=== PATIENT | male | born 1960 | race Caucasian/White ===

== ENCOUNTER 2023-10-20 21:31 | Emergency (ER) | payer OTHER, SELFPAY ==
[2023-10-20 21:34] VITALS: BP 160/90
[2023-10-20 21:56] LABS: % Basophils 0.7 % (0-2); % Eosinophils 0.9 % (0-6); % Immature Granulocytes 0.3 % (0-0.5); % Lymphocytes 21.9 % (20.5-51.1); % Monocytes 3.4 % (1.7-9.3); % Neutrophils 72.8 % (42.2-75.2); Absolute Eosinophils 0.1 10^3/uL (0-0.7); Absolute Lymphocytes 1.3 10^3/uL (1.2-3.4); Absolute Monocytes 0.2 10^3/uL (0.1-0.6); Absolute Neutrophils 4.3 10^3/uL (1.4-6.5); Hematocrit 38.2 % (39.0-52.0); Hemoglobin 13.3 g/dL (13.0-18.0); Mean Corp Hgb Conc. 34.8 g/dL (33.0-37.0); Mean Corpuscular Hgb 31.6 pg (27.0-31.0); Mean Corpuscular Volume 90.7 fL (80.0-94.0); Nucleated Red Blood Cells % 0 % (-); Platelet Count 172 10^3/uL (130-400); Red Blood Cell Count 4.21 10^6/uL (4.70-6.10); White Blood Cell Count 5.9 10^3/uL (4.8-10.8)
[2023-10-20 22:12] LABS: ALT (SGPT) 39 U/L (0-50); AST (SGOT) 35 U/L (17-59); Albumin 4.1 g/dl (3.5-5.0); Alkaline Phosphatase 79 U/L (38-126); Blood Urea Nitrogen 11 mg/dl (9-20); Carbon Dioxide 26 mmol/L (22-30); Chloride 99 mmol/L (98-107); Glucose 268 mg/dl (70-99); Potassium 4.6 mmol/L (3.5-5.1); Sodium 132 mmol/L (135-145); Total Bilirubin 0.7 mg/dl (0.2-1.3); Total Protein 6.3 g/dl (6.3-8.2); eGFR > 60.00
[2023-10-21] VITALS: BP 152/84
--- NOTE | 2023-10-21 00:13 | ED.GENMED ---
History of Present Illness
<Tracey Soria MD, Resident - Last Filed: 10/21/23 02:02>
General
Chief Complaint: Fainting Sensation
Source: patient
Time Seen by Provider: 10/21/23 00:13
History of Present Illness
History of Present Illness:
The patient is a 63 year old male who presented to ER today after he had a fainting sensation this afternoon at around 8.00 pm. He reported that he was ate his dinner and was drinking his beer ( without alcohol) in a bar when he started to feel
sweating and fainting. He reported he suddenly had the feeling of passing out and his told it to his . By patient`s report, his BP was found low at that time and his ECG was found normal. He was brought to ER by ambulance. He denies hitting
his head/falling, chest pain, SOB, palpitations at that time. Denies drinking alcohol and reports he stopped drinking alcohol since June 2023.
PMH: HT (for a few las year- not taking any medication), Depression ( on Cymbalta), fluvoxamine (Bladder problems)
PSH:None
If applicable-neuro sx onset
Date of onset of symptoms: 10/21/23
Review of Systems
<Tracey Soria MD, Resident - Last Filed: 10/21/23 02:02>
Review of Systems
Respiratory: Reports no symptoms
Cardiac: Reports no symptoms
: Reports no symptoms
Musculoskeletal: Reports no symptoms
Skin: Reports no symptoms
Neurological: Reports no symptoms
Hematologic/Lymphatic: Reports no symptoms
<Juan Westfall DO - Last Filed: 10/21/23 01:50>
Review of Systems
Allergies reviewed?: Yes
All Other Systems: ROS reviewed and negative except as documented in HPI and ROS
Constitutional: Reports no symptoms
EENT: Reports no symptoms
ABD/GI: Reports no symptoms
Endocrine: Reports no symptoms
Psychiatric: Reports no symptoms
Phy Exam
<Tracey Soria MD, Resident - Last Filed: 10/21/23 02:02>
General Physical Exam
General Presentation: well appearing
General age: appears stated age
General Skin: warm
General Mental: alert
Cardiovascular Exam
Cardiovascular Exam: regular rate/rhythm, no edema, no JVD and no murmur
Pulmonary Exam
Pulmonary Exam: lungs clear and no respiratory distress
Neurological Exam
Neurological Exam: alert, oriented x3 and no motor deficits
Course
<Tracey Soria MD, Resident - Last Filed: 10/21/23 02:02>
Orders/Labs/Results
Orders:
Orders
10/20/23 21:38
Electrocardiogram (*1) Urgent
Reason for Study: Syncope
EKG- Treatment ONCE
10/20/23 21:49
CMP [Comprehensive Metabolic Panel] Urgent
Complete Blood Count/With Diff Urgent
10/21/23 00:48
Orthostatic VS- Treatment ONCE
10/21/23 01:11
Troponin I Urgent
Abnormal Lab Results
10/20/23
21:49
RBC 4.21 L 10^6/uL
(4.70-6.10)
Hct 38.2 L %
(39.0-52.0)
MCH 31.6 H pg
(27.0-31.0)
Sodium 132 L mmol/L
(135-145)
Glucose 268 H mg/dl
(70-99)
10/20/23 21:49
10/20/23 21:49
Vital Signs
Initial and Last Documented VS:
Initial Vital Signs
Temp Pulse Resp BP Pulse Ox
97.8 F 78 20 160/90 100
10/20/23 21:34 10/20/23 21:34 10/20/23 21:34 10/20/23 21:34 10/20/23 21:34
Last Documented Vital Signs
Temp Pulse Resp BP Pulse Ox
97.8 F 66 13 144/86 98
10/20/23 21:34 10/21/23 01:15 10/21/23 01:15 10/21/23 01:15 10/21/23 01:15
<Juan Westfall, DO - Last Filed: 10/21/23 01:50>
Orders/Labs/Results
Orders:
Orders
10/20/23 21:38
Electrocardiogram (*1) Urgent
Reason for Study: Syncope
EKG- Treatment ONCE
10/20/23 21:49
CMP [Comprehensive Metabolic Panel] Urgent
Complete Blood Count/With Diff Urgent
10/21/23 00:48
Orthostatic VS- Treatment ONCE
10/21/23 01:11
Troponin I Urgent
Abnormal Lab Results
10/20/23
21:49
RBC 4.21 L 10^6/uL
(4.70-6.10)
Hct 38.2 L %
(39.0-52.0)
MCH 31.6 H pg
(27.0-31.0)
Sodium 132 L mmol/L
(135-145)
Glucose 268 H mg/dl
(70-99)
10/20/23 21:49
10/20/23 21:49
Vital Signs
Initial and Last Documented VS:
Initial Vital Signs
Temp Pulse Resp BP Pulse Ox
97.8 F 78 20 160/90 100
10/20/23 21:34 10/20/23 21:34 10/20/23 21:34 10/20/23 21:34 10/20/23 21:34
Last Documented Vital Signs
Temp Pulse Resp BP Pulse Ox
97.8 F 66 13 144/86 98
10/20/23 21:34 10/21/23 01:15 10/21/23 01:15 10/21/23 01:15 10/21/23 01:15
<Tracey Soria MD, Resident - Last Filed: 10/21/23 02:02>
MDM/Problems Addressed
Differential Diagnosis Includes:
Dehydration, WI, cardiac arrhythmia, electrolyte abnormalities, orthostatic hypotension
MDM/Problems Addressed:
ECG, Orthostatic test, CBC, CMP, Troponin I were ordered.
ECG,CBC and CMP, Troponin I results are unremarkable. The patient has had High Blood pressure levels during this visit. He reported he was recommended to start treatment by his PCP to address his HT and he did not.
<Tracey Soria MD, Resident - Last Filed: 10/21/23 02:02>
*Critical Care Note
Total Time (30-74mins, 75-104mins- exclusive of procedures): Not Applicable
ED Attending Note
<Tracey Soria MD, Resident - Last Filed: 10/21/23 02:02>
-
Portions of this chart may have been created with voice recognition software.� Occasional wrong word or��sound alike� substitutions may have occurred due to the inherent limitations of voice recognition software.
<Juan Westfall DO - Last Filed: 10/21/23 01:50>
ED Attending Note
Patient seen and examined by attending physician: Yes
I performed the substantive portion of visit, reviewed & personally made and approve the management plan that is documented in note by myself or BRIAN.: Yes
ED Attending Note:
Pleasant 63-year-old male that presents with a near syncopal event. Patient was at a bar eating dinner, drinking nonalcoholic beer when she started to feel lightheaded. 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
pressure. They found it to be low. When the paramedics arrived, they did an EKG and stated that it was normal. 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 Patient denies chest pain or shortness of breath. Since he did
have hypotension, he was transported to [facility] emergency department. Upon arrival he had no symptoms. Patient admits to drinking alcohol heavily up until June 2023. Since then he has been drinking nonalcoholic beer. He does admit
to being dehydrated. Patient was seen in conjunction with the resident. I have reviewed and agree with her history and treatment plan. On my independent physical exam patient awake, alert, and oriented x 3, in no acute distress. Mentating
appropriately. Heart is regular rate and rhythm. Lungs are clear to auscultation bilaterally without wheezes rales or rhonchi present. Abdomen is soft and nontender nondistended no hepatosplenomegaly. He moves all 4 extremities. Skin is warm
and dry.
EKG shows normal sinus rhythm rate of 75 with GA interval of 200 which is the upper limits of normal. Otherwise normal intervals, normal axis. No evidence of acute ischemia present. No old EKGs available for comparison.
Discharge Plan
Departure
Patient Disposition: Home (Routine Discharge)
Date of Disposition: 10/21/23
Time of Disposition: 01:52
Patient with high blood pressure during this ER visit?: Yes
Condition: Good
Discharge Problem:
Near syncope
Instructions: Near Fainting (DC), BLOOD PRESSURE
Referrals:
Harini Lr PA-C [Family Provider] -
Activity Restrictions/Additional Instructions:
It was a pleasure meeting you and taking part in your care. We hope for your continued healing and wellness. It is recommended to have a follow up visit with your PCP to address your HT.
Please read discharge instructions in their entirety. However, they are for general education and may not describe your exact diagnosis at discharge. Information on your ER visit and medical conditions were discussed with you along with appropriate
follow up information...
If indicated, please take your medications as instructed and indicated on discharge paperwork.
Please schedule a follow up appointment as directed. Call to schedule an appointment
Please return to the emergency department with ANY change in, persisting, or worsening of symptoms. If any of your symptoms do not improve, or persist, or become more severe within 6-12 hours, please return to the emergency department for further
care.
Please return to the emergency department if you develop a headache, neck pain/stiffness, fever greater than 100.4F, chest pain, shortness of breath, persistent nausea, vomiting, slurred speech, difficulty walking, numbness/tingling, weakness, signs
of infection or any other symptoms that are worrisome to you.
If you have any questions or concerns please do not hesitate to call the Hospital at or E-mail me directly at [email or web address]
Interventions
Interventions:
*Risk Screen - Suicide Last Done: 10/20/23 21:34
*General Assessment Last Done: 10/21/23 00:23
*Neglect/Abuse Screening Last Done: 10/20/23 21:34
ED- Fall Risk Assessment Last Done: 10/21/23 00:23
*ED COVID-19 Vaccine History Last Done: 10/21/23 00:23
ED- Cardiac Assessment Last Done: 10/21/23 00:22
ED- Neurological Assessment Last Done: 10/21/23 00:22
Discharge Date and Time
Print Language: SPANISH
[2023-10-21 00:14] VITALS: BP 153/85
[2023-10-21 01:00] VITALS: BP 147/80
[2023-10-21 01:12] VITALS: BP 131/82; BP 140/87; BP 144/86; PULSE 63; PULSE 64; PULSE 66
[2023-10-21 01:14] VITALS: BP 140/87
[2023-10-21 01:15] VITALS: BP 144/86
[2023-10-21 01:48] LABS: Troponin I < 0.012 ng/ml
== END 2023-10-21 02:03 | disposition home or self-care (01) ==
LOC: EMR 21:31
PROVIDERS: Emergency Medicine; Student in an Organized Health Care Education/Training Program; EMERGENCY PHYSICIAN Student in an Organized Health Care Education/Training Program; FAMILY PHYSICIAN Physician Assistant
DX: R55 Syncope and collapse (principal); R03.0 Elevated blood-pressure reading, without diagnosis of hypertension
CPT/HCPCS: 99284; 80053; 84484; 85025; 93005